=== PATIENT | male | born 1980 | race Caucasian/White ===

== ENCOUNTER 2018-06-18 20:20 | Emergency (ER) | payer OTHER | END 2018-06-18 22:05 | disposition home or self-care (01) | LOC: EDH 20:20 | DX: S62.390A Other fracture of second metacarpal bone, right hand, initial encounter for closed fracture (principal); Z72.0 Tobacco use; Y04.0XXA Assault by unarmed brawl or fight, initial encounter; Y93.89 Activity, other specified; Y92.830 Public park as the place of occurrence of the external cause; Y99.8 Other external cause status | CPT/HCPCS: 29125; 73130 ==